=== PATIENT | male | born 1990 | race American Indian/Alaskan Native ===

== ENCOUNTER 2024-04-23 14:05 | Emergency (ER) | payer BC ==
[~2024-04-23] VITALS: Ht 167.6 cm; Wt 54.5 kg
[2024-04-23 14:12] VITALS: BP 117/72; TEMP 98.2
[2024-04-23 15:50] VITALS: PULSE 75
== END 2024-04-23 16:01 | disposition home or self-care (01) ==
LOC: COL.ER 14:05
DX: K04.7 Periapical abscess without sinus (principal)

== ENCOUNTER 2024-06-12 01:36 | Emergency (ER) | payer BC ==
[~2024-06-12] VITALS: Ht 167.6 cm; Wt 54.5 kg
[2024-06-12 01:42] VITALS: TEMP 98.5
[2024-06-12] MEDS ORDERED: CLEOCIN HCL300 MG PO (01:59)
[2024-06-12] MEDS ORDERED: Home HYDROcodone/Acetaminophen 5/325 MG #4 TABS/PACK PO ONE (02:00)
[2024-06-12] MEDS ORDERED: Clindamycin 150 MG CAP PO ONE (02:00)
[2024-06-12 02:10] VITALS: BP 128/79; PULSE 89
== END 2024-06-12 02:10 | disposition home or self-care (01) ==
LOC: COL.ER 01:36
DX: K02.9 Dental caries, unspecified (principal); Z87.891 Personal history of nicotine dependence